=== PATIENT | female | born 1965 | race Caucasian/White ===

== ENCOUNTER 2020-11-11 16:09 | Outpatient (CLI) | payer OTHER, SELFPAY ==
--- NOTE | ~2020-11-11 | MM_ITS ---
EXAMINATION: MM screening [facility] BI w lise HISTORY: Screening TECHNIQUE: Craniocaudal and mediolateral oblique 3-D tomosynthesis images were obtained and synthetic 2-D images were generated. CAD analysis was submitted and interpreted. COMPARISON: Comparison to multiple prior studies sequentially, with oldest reviewed study dated 10/2016. BREAST PARENCHYMAL COMPOSITION: Breast composed of scattered areas of fibroglandular density. FINDINGS: There is no evidence of suspicious mass, calcification, or architectural distortion to sugg est malignancy in either breast. There has been no suspicious interval change. IMPRESSION: 1. No mammographic evidence of malignancy. 2. Recommend routine screening mammography in one year. BI-RADS Category 1: Negative Reviewed, dictated and finalized at location A.
== END 2020-11-11 16:10 | disposition home or self-care (01) ==
LOC: ANHIMG 16:14
PROVIDERS: PCP Physician Assistant; Visit Provider Obstetrics & Gynecology
DX: Z12.31 Encounter for screening mammogram for malignant neoplasm of breast (principal)
CPT/HCPCS: 77063; 77067

== ENCOUNTER 2021-10-06 07:10 | Outpatient (CLI) | payer OTHER, SELFPAY ==
--- NOTE | 2021-10-06 | ECG_ITS ---
Measurements Intervals [place] Rate: 52 P: 33 DC: 146 QRS: -1 QRSD: 79 T: 15 QT: 407 QTc: 380 Interpretive Statements SINUS BRADYCARDIA NO PREVIOUS ECG AVAILABLE FOR COMPARISON Electronically Signed On 10-06-2021 13:58:50 CDT by Nataliia Barrios M.D.
[2021-10-06 08:50] LABS: Basophils Absolute Auto 0.1 K/mm3 (0.0-0.1); Basophils Percent Auto 0.9 % (0.2-1.2); Eosinophils Absolute Auto 0.2 K/mm3 (0-0.3); Eosinophils Percent Auto 2.6 % (0-4.4); Hematocrit 43.1 % (37.0-47.0); Hemoglobin 14.2 g/dL (12.0-15.0); Immature Granulocyte Absolute 0.05 K/mm3 (0.00-0.031); Immature Granulocyte Percent A 0.6 % (0-0.5); Lymphocytes Absolute Auto 1.97 K/mm3 (0.9-3.2); Lymphocytes Percent Auto 25.3 % (18.3-44.2); Mean Corpuscular HGB Conc 32.9 g/dl (32-36); Mean Corpuscular Hemoglobin 30.4 pg (26-34); Mean Corpuscular Volume 92.3 fl (80-100); Monocytes Absolute Auto 0.4 K/mm3 (0.1-0.6); Monocytes Percent Auto 5.3 % (2.6-8.5); Neutrophils Absolute Auto 5.1 K/mm3 (1.3-6.7); Neutrophils Percent Auto 65.3 % (45.5-73.1); Platelet Count Result 251 k/mm3 (150-375); Red Blood Count 4.67 M/mm3 (4.2-5.4); Red Cell Distribution Width 13.8 % (11.5-14.5); White Blood Count 7.8 K/mm3 (4.5-10.0)
[2021-10-06 08:57] LABS: Add Urine Microscopic? YES; Appearance Urine Clear (Clear); Bacteria Urine Trace /hpf; Bilirubin Urine Negative (Negative); Blood Urine 1+ (Negative); Color Urine Yellow (Yellow); Glucose Urine UA Negative (Negative); Ketones Urine Negative (Negative); Leukocyte Esterase Ur Negative LEU/UL (Negative); Mucus Urine Rare /lpf; Nitrate Urine Negative (Negative); Protein Urine Negative (Negative); RBC Urine 0-2 /hpf (0-2); Specific Grav Ur 1.014 (1.001-1.035); Squamous Epithelial Cell Urine Few /hpf (Few); Urobilinogen Urine Negative mg/dL (<2.0); WBC Urine 0-3 /hpf
[2021-10-06 09:02] LABS: Alanine Aminotransferase 25 U/L (4-35); Albumin Level 4.2 g/dL (3.5-5.1); Alkaline Phosphatase 116 U/L (38-126); Anion Gap 6 mmol/L (8-16); Aspartate Amino Transferase 33 U/L (14-36); Bilirubin,Total 0.2 mg/dL (0.2-1.3); Blood Urea Nitrogen 14 mg/dL (7-17); Calcium 9.1 mg/dL (8.4-10.2); Carbon Dioxide 33 mmol/L (22-30); Chloride 102 mmol/L (98-107); Estimated Glomerular Filt Rate > 60; Glucose 103 mg/dL (65-110); Hemoglobin A1C 5.1 % (<5.7); Potassium 4.5 mmol/L (3.4-5.0); Sodium 141 mmol/L (137-145)
[2021-10-06 09:46] LABS: Free T4 Free Thyroxine 1.37 ng/mL (0.78-2.19)
== END 2021-10-06 07:11 | disposition home or self-care (01) ==
PROVIDERS: PCP Physician Assistant; Visit Provider Physician Assistant
DX: Z01.89 Encounter for other specified special examinations (principal); Z13.1 Encounter for screening for diabetes mellitus; Z79.899 Other long term (current) drug therapy; Z13.220 Encounter for screening for lipoid disorders; R00.1 Bradycardia, unspecified
CPT/HCPCS: 36415; 80053; 80061; 81001; 83036; 84439; 84443; 85025; 93005

== ENCOUNTER 2022-07-21 10:00 | Outpatient (CLI) | payer OTHER, SELFPAY ==
--- NOTE | ~2022-07-21 | MM_ITS ---
EXAMINATION: MM screening [facility] BI w lise HISTORY: Screening mammogram TECHNIQUE: Craniocaudal and mediolateral oblique 3-D tomosynthesis images were obtained and synthetic 2-D images were generated. CAD analysis was submitted and interpreted. COMPARISON: 11/11/2020, 07/29/2019, 02/2018 bilateral screening mammogram examinations BREAST PARENCHYMAL COMPOSITION: There are scattered areas of fibroglandular density. FINDINGS: There is no evidence of suspicious mass, calcification, or architectural distortion to sugg est malignancy in either breast. There has been no suspicious interval change. IMPRESSION: 1. No mammographic evidence of malignancy. 2. Recommend routine screening mammography in one year. BI-RADS Category 1: Negative Reviewed, dictated and finalized at location A. E OFFICE
== END 2022-07-21 10:01 | disposition home or self-care (01) ==
LOC: ANHIMG 10:02
PROVIDERS: PCP Physician Assistant; Visit Provider Nurse Practitioner
DX: Z12.31 Encounter for screening mammogram for malignant neoplasm of breast (principal)
CPT/HCPCS: 77063; 77067

== ENCOUNTER → 2022-09-27 11:01 | Outpatient (CLI) | payer OTHER, SELFPAY ==
--- NOTE | ~2022-09-27 | US_ITS ---
EXAMINATION: US transvaginal DATE: 09/27/2022 11:24 INDICATION: Postmenopausal uterine bleeding. TECHNIQUE: Multiple transabdominal and transvaginal sonographic images of the pelvis were obtained. COMPARISON: None. FINDINGS: TRANSABDOMINAL ULTRASOUND: The uterus measures 6.2 x 3.7 x 4.1 cm. There is no free fluid in the pelvis. TRANSVAGINAL ULTRASOUND: The endometrial complex measures 8 mm in thickness. The right ovary measures 1.3 x 0.7 x 1.2 cm. The left ovary measures 1.4 x 0.9 x 1.2 cm. There is normal vascular flow in the ovaries. IMPRESSION: 1. Thickened endometrial complex. The differential diagnosis includes endometrial hyperplasia, polyp, and carcinoma. Consider biopsy. Reviewed, dictated and finalized at location A. UNTS OFFICER IMPRESSION: 1. Thickened endometrial complex. The differential diagnosis includes endometri al hyperplasia, polyp, and carcinoma. Consider biopsy.
== END ==
PROVIDERS: PCP Physician Assistant; Visit Provider Advanced Practice Midwife
DX: N95.0 Postmenopausal bleeding (principal); N93.8 Other specified abnormal uterine and vaginal bleeding
CPT/HCPCS: 76830

== ENCOUNTER 2022-10-30 00:50 | Day surgery (SDC) | payer OTHER, SELFPAY ==
[2022-10-18 13:46] VITALS: BMI 37.0
--- NOTE | 2022-10-19 15:24 | PC.NURSE ---
Report to the Outpatient Waiting Room, entrance under the green pavilion located off [facility], at time _0730 on date __10/30/22 . Planned Procedure Time: 929 . Time changes happen often and if your time is changed the preop area will call you the afternoon before. - You and your visitor will be asked to self-screen and do not enter if you have any COVID symptoms. - Only one visitor is requested with a max of two and NO children visitors are allowed at this time. - The patient visitor may be requested to leave or wait in car when not with patient due to distancing restrictions. - A mask is optional within the hospital at this time. Patients may have clear liquids (water, carbonated beverages, clear teas, apple juice) until 3 hours prior to surgery with a maximum of 20 ounces. - No food from midnight until time of surgery - Infants may have breast milk until 4 hours before surgery, formula 6 hours prior to surgery. - Children will be allowed to drink immediately following surgery. If applicable, please bring a bottle or sippy cup to assist with drinking. Juice, water, soda, and popsicles are readily available. For infants on formula, please bring formula the day of surgery. Pacifiers are allowed. Take the following medications with a SIP of water the morning of surgery: _EFFEXOR DO NOT STOP ANY OF YOUR OTHER PRESCRIPTION MEDICATIONS PRIOR TO SURGERY ?EXCEPT THE FOLLOWING Medications to discontinue per physician ____N/A Date to take last dose___N/A Please no make-up, nail icelandic, hairspray, perfume, deodorant, or body powder the day of surgery. No jewelry (including any body piercings) or valuables the day of surgery, leave them at home. Please take a shower or bath the night before, or the morning of, surgery with an antibacterial soap. Wear comfortable, loose fitting clothing. Children are encouraged to wear pajamas. - Jewelry must be removed prior to entering the operating room. Rings and piercings that are not removed may be cut off. - The hospital will not accept responsibility for valuables. - Please leave all valuables, including medications, at home the day of surgery. If you are going home after surgery, a licensed subway train driver must drive you home. - NO public transportation without another adult if you receive anesthesia. - We recommend that an adult stay with you for 24 hours following discharge. - We also recommend that you do not drive, make important decision, drink alcoholic beverages, or take any drugs that were not prescribed by your health care provider for at least 24 hours after your discharge time. For Pediatric surgeries, we recommend two adults accompany the child home. Follow any additional instructions given to you from your surgeon. If you or anyone in your household have experienced Covid symptoms in the past week, please notify your surgeon or the nurse liaison at the phone number below for possible testing. Telephone instructions given to KOKO and asked if any additional questions and then verbalized understanding. Patient advised to call surgeon office or pre surgery nurse liaison [phone] if any additional questions.
--- NOTE | 2022-10-30 07:39 | WPDHPUPDATE1 ---
History and Physical Update Update Date/Time: 10/30/22 07:39 History and Physical has been reviewed, including an updated exam of the patient. There are NO changes in the patient's condition. Risks, benefits, and alternatives have been discussed and questions answered. Patient agrees to proceed with procedure.
--- NOTE | 2022-10-30 07:40 | PM.HPGS ---
History of Present Illness History of Present Illness Consent: Risks, benefits, and alternatives have been discussed and questions answered. Patient agrees to proceed with procedure. Chief complaint: abn uterine bleeding Narrative: Karen English is a 56 year old female with 3 episodes of bleeding in 2021 ( July, February, March). Patient states she has never gone a full year without bleeding however at her annual exam in 2021 she stated she had had no bleeding. Labs are consistent with probable menopause and ultrasound shows a lining of 8mm. Patient may be perimenopausal versus menopausal. It is recommended to proceed with D&C hysteroscopy to evaluate. Risks of infection, bleeding, perforation, and possible pathology are reviewed. Patient voices understanding and agrees to proceed. Review of Systems Constitutional: Constitutional: Reports night sweats ( And hot flashes) ENT: Reports other ( hay fever) PMFSH Past Medical History Medical History (Updated 10/30/22 @ 07:44 by Karen Almazan MD) Depression with anxiety Insomnia (normal spontaneous vaginal delivery) x3 Surgical History Surgical History (Updated 10/30/22 @ 07:43 by Karen Almazan MD) Hx of microdiscectomy Social History Social History Smoking status: Never smoker Alcohol intake: never Substance use: never Substance use type: does not use Living arrangements: with family Spiritual care concerns: No Meds Home Medications and Allergies Home Medications Medication Instructions Recorded Confirmed Type ergocalciferol (vitamin D2) 1,250 1,250 mcg PO DAILY 10/18/22 10/18/22 History mcg (50,000 unit) capsule trazodone 50 mg tablet 50 mg PO HS 10/18/22 10/18/22 History venlafaxine 75 mg capsule,extended 75 mg PO BID 10/18/22 10/18/22 History release 24 hr Allergies Allergy/AdvReac Type Severity Reaction Status Date / Time No Known Allergies Allergy Unverified 03/29/18 06:39 Exam Const: General: healthy appearing and alert Orientation/consciousness: patient oriented x3 Resp: Effort & Inspection: normal respiratory effort GI: GI Palp: Yes Soft to palpation, No Tenderness to palpation present (GI) and No Palpable mass present : External Female Exam: normal external appearance Speculum Exam - Vagina: normal appearance of the vagina and normal vaginal discharge Speculum Exam - Cervix: normal appearance of the cervix Bimanual exam- vagina & uterus: uterine size normal and consistency normal Bimanual Exam- Adnexa, other: normal adnexae and No adnexal tenderness Neuro: General: patient oriented x3 Assessment and Plan Assessment and plan (1) History of postmenopausal bleeding: Code(s): Z87.42 - Personal history of other diseases of the female genital tract Status: Acute Assessment and Plan: The patient is likely postmenopausal with 3 episodes of bleeding in 2021. Plan to proceed with D&C hysteroscopy.
[2022-10-30 08:00] VITALS: BP 149/79; PULSE 63; RESP 16; TEMP 36.3; O2SAT 99
[2022-10-30] MEDS: LACTATED RINGERS 1,000 ML 30 ML IV CONT (08:00)
[2022-10-30] MEDS: ACETAMINOPHEN 500 MG TABLET 1000 MG PO (08:30)
--- NOTE | 2022-10-30 08:33 | P.PNAN_ITS ---
Anes - Initial Pre Proc Eval Procedure: Operation Date: 10/30/22 09:30 Proposed Procedures p Hysteroscopy, Dilation and Curettage - Karen Almazan MD Date/Time: 10/30/22 08:33 Surgeon: Karen Almazan MD Pre Op Diagnosis: abn uterine bleeding Patient Data Age: 56 Gender: F Height: 1.6 m Weight: 95 kg Allergies Allergy/AdvReac Type Severity Reaction Status Date / Time No Known Allergies Allergy Unverified 10/30/22 08:38 Home Medications Medication Instructions Recorded Confirmed Type ergocalciferol (vitamin D2) 1,250 1,250 mcg PO DAILY 10/18/22 10/30/22 History mcg (50,000 unit) capsule trazodone 50 mg tablet 50 mg PO HS 10/18/22 10/30/22 History venlafaxine 75 mg capsule,extended 75 mg PO BID 10/18/22 10/30/22 History release 24 hr Patient hx anesthesia problems: none Family hx anesthesia problems: none Results Review: All pre-operative results and documents have been reviewed as part of the pre- operative evaluation. PMFSH Past Medical History Medical History (Updated 10/30/22 @ 07:44 by Karen Almazan MD) Depression with anxiety Insomnia (normal spontaneous vaginal delivery) x3 Surgical History Surgical History (Updated 10/30/22 @ 07:43 by Karen Almazan MD) Hx of microdiscectomy Social History Social History Smoking status: Never smoker Alcohol intake: never Substance use: never Substance use type: does not use Living arrangements: with family Spiritual care concerns: No Anes - Eval Final PreProcedure Day of Procedure 10/30/22 08:33 Patient weight: obese Heart: regular rate and rhythm Lungs: clear to auscultation Airway: Mallampati scale class II Neurological: alert and oriented Last oral intake: >/= 8 hours ASA classification: II Emergent: no Anesthetic plan: proceed Anesthesia type and monitoring: general GIVS and standard monitoring Results Review: All pre-operative results and documents have been reviewed as part of the pre- operative evaluation. Informed Consent: The patient's anesthetic plan and its attendant risks and benefits were discussed with the patient/family/POA. Questions were solicited and answers provided to the satisfaction of the patient/family/POA.
[2022-10-30] MEDS: LIDOCAINE HCL 1% LOCAL INJ 20 ML VIAL 10 ML INFILTRATE (09:50)
[2022-10-30 10:01] VITALS: BP 113/63; PULSE 60; RESP 14; O2SAT 97
--- NOTE | 2022-10-30 10:01 | W.PM.PROC2 ---
Procedure Note - Detailed Date of Procedure 10/30/22 Pre-op Diagnosis abnormal uterine bleeding likely postmenopausal Post-op Diagnosis Same Procedure Performed D&C hysteroscopy Surgeon Karen Almazan MD Anesthesia MAC and Local Findings the uterus sounds to 8cm and has a septum; right portion of the uterus appears atrophic and the left portion has a very small entrance that I was unable to pass Description of Procedure the patient was taken to the operating room and placed under anesthesia in the dorsal lithotomy position. She was prepped and draped in the usual sterile fashion. [place] speculum was placed in the vagina and the cervix grasped on the anterior lip with a tenaculum. The cervix is injected in each quadrant with 1% lidocaine. The uterus is sounded to 8cm and the hysteroscope is placed. The above-stated findings are noted. The hysteroscope was removed and the sharp curette used to curette the endometrium until a good uterine cry was noted in all areas. Minimal material was obtained consistent with the atrophic appearance. Estimated Blood Loss 5 Drains No Packing No Pathology Yes ( Endometrial curettings) Complications No immediate complications Condition Stable Disposition PACU
[2022-10-30 10:31] VITALS: BP 150/90; PULSE 53; RESP 16; O2SAT 100
== END 2022-10-30 10:57 | disposition home or self-care (01) ==
PROVIDERS: PCP Physician Assistant; Visit Provider Obstetrics & Gynecology Gynecology
PROC: 0U5B8ZZ Destruction of Endometrium, Via Natural or Artificial Opening Endoscopic (ICD-10-PCS; CPT 58563; principal; 2022-10-30 09:30)
DX: N95.0 Postmenopausal bleeding (principal); Q51.28 Other and unspecified doubling of uterus; F41.8 Other specified anxiety disorders; G47.00 Insomnia, unspecified; E66.9 Obesity, unspecified; Z68.36 Body mass index [BMI] 36.0-36.9, adult
CPT/HCPCS: 58558; 88305; A9270; J2250; J2704; J3010; J7120

== ENCOUNTER 2023-09-26 09:29 | Outpatient (CLI) | payer OTHER, SELFPAY ==
--- NOTE | ~2023-09-26 | MM_ITS ---
EXAMINATION: MM screening [facility] BI w lise HISTORY: Screening mammogram TECHNIQUE: Craniocaudal and mediolateral oblique 3-D tomosynthesis images were obtained and synthetic 2-D images were generated. CAD analysis was submitted and interpreted. COMPARISON: 07/21/2022, 11/11/2020, 07/29/2019 bilateral screening mammogram examinations BREAST PARENCHYMAL COMPOSITION: There are scattered areas of fibroglandular density. FINDINGS: There is no evidence of suspicious mass, calcification, or architectural distortion to sugg est malignancy in either breast. There has been no suspicious interval change. IMPRESSION: 1. No mammographic evidence of malignancy. 2. Recommend routine screening mammography in one year. BI-RADS Category 1: Negative Reviewed, dictated and finalized at location A. LIBRARIAN
== END 2023-09-26 09:30 | disposition home or self-care (01) ==
LOC: ANHIMG 09:34
PROVIDERS: PCP Physician Assistant; Visit Provider Nurse Practitioner
DX: Z12.31 Encounter for screening mammogram for malignant neoplasm of breast (principal)
CPT/HCPCS: 77063; 77067

== ENCOUNTER 2023-11-14 11:03 | Outpatient (CLI) | payer OTHER, SELFPAY ==
--- NOTE | ~2023-11-14 | US_ITS ---
EXAMINATION: US transvaginal DATE: 11/14/2023 11:30 INDICATION: Postmenopausal bleeding. TECHNIQUE: Multiple transvaginal sonographic images of the pelvis were obtained. COMPARISON: Ultrasound 09/27/2022 FINDINGS: The uterus is normal in size. There is no free fluid in the pelvis. The endometrial complex measures 4.8 mm in thickness. The ovaries are not visualized. IMPRESSION: 1. Normal endometrial complex. Reviewed, dictated and finalized at location E.
== END 2023-11-14 11:04 ==
PROVIDERS: PCP Nurse Practitioner; Visit Provider Nurse Practitioner
DX: N95.0 Postmenopausal bleeding (principal)
CPT/HCPCS: 76830

== ENCOUNTER 2024-12-31 09:32 | Outpatient (CLI) | payer OTHER, SELFPAY ==
--- NOTE | ~2024-12-31 | MM_ITS ---
EXAMINATION: MM screening anshu BI w lise HISTORY: Screening TECHNIQUE: Craniocaudal and mediolateral oblique 3-D tomosynthesis images were obtained and synthetic 2-D images were generated. CAD analysis was submitted and interpreted. COMPARISON: Comparison to multiple prior studies sequentially, with oldest reviewed study dated 08/26. BREAST PARENCHYMAL COMPOSITION: Not Dense. The breasts are almost entirely fatty. FINDINGS: There is no evidence of suspicious mass, calcification, or architectural distortion to sugg est malignancy in either breast. There has been no suspicious interval change. IMPRESSION: 1. No mammographic evidence of malignancy. 2. Recommend routine screening mammography in one year. BI-RADS Category 1: Negative Reviewed, dictated and finalized at location B.
--- OUTSIDE RECORDS SUMMARY | 2024-12-31 10:32 | XMS_ITS | Patient Health Record ---
Author Organization Formerly [facility] Address [address] [place] [address] Care Team Providers Care [employer] Name Role Phone Marvin Tran Primary Care Provider [phone] Allergies No Known Allergies Reason For Referral No Information Medications Medication SIG (Take, Route, Fr equency, Duration) Notes Start Date End Date Status Effexor XR 75 MG 1 capsule with food Orally Once a day for 30 days Active traZODone HCl 50 MG 1 tablet at bedtime as needed Orally Once a day for 30 days Ac tive Effexor XR 150 MG 1 capsule with food Orally Once a day for 30 days Active Social History Tobacco Use: Social History Observation Description Date Details (start date - stop date) Never Smoker NA - NA Sex Assigned At : Social History Observation Description Sex Assigned At Female Dont use, Tobacco Use/Smoking Question Answer Notes Are you a nonsmoker Problems Problem Type SNOMED Code ICD Code Onset Dates Problem Status W/U Status Risk Notes Problem Major depression (F32.9) Active confirmed Encounters Encounter Location Date Provider Diagnosis [facility] [address] [place] [address] 01/01/2024 Mustapha Marc Plan Of Treatment No Information Insurance Providers Payer Name Payer Address Payer Phone Subscriber Number Group Number Insured Name Patient Relationship to Insured Coverage Start Date Coverage End Date [facility] [id number] [place] [phone] [id number] Karen English Self - patient is the insured 0 Medical (General) History Surgical History Surgery Date(Month/Year) back surgery Hospitalization History Reason Date(Month/Year) 3 vaginal births
--- OUTSIDE RECORDS SUMMARY | 2024-12-31 10:32 | XMS_ITS | Data Portability ---
Author Organization [facility] [employer], Main Office Address [address] [place] [address] Assessment Encounter Date Assessment Date Assessment LastModified by Organization Details LastModified Time 10/11/2022 10/11/2022 colonoscopy 7 years ago approx, had 10 year time frame [email or web address] Not available 10/11/2022 11:14:23 Plan of Treatment Reminders Order Date Submit Date Provider Last Modified By Organization Details Last Modified Time Details Appointments None recorded. Lab CMP, serum or plasma 023 023 [place] [facility], 2022 Ravi Loving, [address], [place], [address], 3 05:01:24 CBC w/ auto diff 023 023 [place], 2022 Ravi Loving, [address], [place], [address], 3 05:01:24 urinalysi s, dipstick, reflex micro 023 023 [facility] Ravi Loving, [address], [place], [address], 3 05:01:24 vitamin B12 + folate, serum or blood 023 023 [facility]o, 2022 Ravi Loving, [address], [place], [address], 3 05:01:24 lipid panel, serum 023 023 [facility], 2022 Ravi Loving, [address], [place], [address], 3 05:01:24 HbA1c (hemoglob in A1c), blood 023 023 [facility], 2022 Ravi Loving, [address], [place], [address], 3 05:01:24 TSH + free T4, serum 023 023 [facility], 2022 Ravi Loving, [address], [place], [address], 3 05:01:24 insulin, serum 023 023 [facility], 2022 Ravi Loving, [address], [place], [address], 3 05:01:24 Referral None recorded. Procedures None recorded. Surgeries None recorded. Imaging None recorded. Medication Orders None recorded. Patient TargetsNo targets recorded. Patient InstructionsNo instructions recorded. Reason for Referral None Reported. Results Created Date Observation Date Name Description Value Unit Range Abnormal Flag Note LastModifiedBy Organization Detail LastModifiedTime 10/08/19 22 10/06/2021 elect syed pickensgr am, routi ne ECG, 12 leads min No observ ation record ed. [id number] [place] [id number], [place], [address], 09/20/2022 21:02:50 07/26/19 23 07/21/2022 MAMMO , scree marichuy, digit al, bilat eral No observ ation record ed. [email or web address] [place] [id number] [facility] [address], [place], [address], 10/11/2022 11:13:37 Result Notes None recorded. Problems Name Problem SNOMED Code Status Onset Date Resolution Date Notes Provider Name and Address Organization Details Recorded Time Diabetes mellitus screening Active 2021 Not Available [facility] 3 21:00:45 Generalized anxiety disorder 97133698 Active 2021 Not Available [facility] 3 21:00:45 Screening mammography Active 2021 Not Available [facility] 3 21:00:45 Long-term drug therapy Active 2021 Not Available [facility] 3 21:00:45 Adult health examination Active 2021 Not Available [facility] 3 21:00:46 Cholesterol screening Active 2021 Not Available [facility] 3 21:00:46 Screening for malignant neoplasm of colon Active 2021 Not Available [facility] 3 21:00:46 Anxiety 54867197 Active 2021 Not Available [facility] 3 21:00:46 Problem Notes None recorded. Procedures Surgical History Date Name Laterality Status Provider Name and Address Organization Details Recorded Time lumbar microdiscectomy completed Not Available [facility] 09/20/2022 20:59:18 Imaging Results None recorded. Procedure Notes None recorded. Medical Equipment None Reported. Allergies No known drug allergies Medications Name Sig Start Date Stop Date Status Note LastModified by Organization Details LastModified Time venlafaxine ER 75 mg capsule,exte nded release 24 hr TAKE 1 CAPSULE BY MOUTH TWICE DAILY WITH FOOD active Not Available Not Available No t Available trazodone 50 mg tablet TAKE 1 TABLET BY MOUTH EVERY DAY AT BEDTIME NEEDED active Not Available Not Available No t Available oxybutynin chloride ER 10 mg tablet,exten ded release 24 hr TK 1 T PO QD 07/07 completed Not Available Not Available Not Available estradiol-no rethindrone acet 1 mg-0.5 mg tablet TK 1 T PO QD. 07/07 completed Not Available Not Available Not Available ergocalcifer ol (vitamin D2) 1,250 mcg (50,000 unit) capsule TAKE 1 CAPSULE BY MOUTH EVERY WEEK 10/11 completed Not Available Not Available Not Available solifenacin 5 mg tablet 10/11 completed Not Available Not Available Not Available Vitamin D 10,000 daily 2021 active Not Available Not Available Not Avai lable Suprep Bowel Prep Kit 17.5 gram-3.13 gram-1.6 gram oral solution 02/07 completed Not Available Not Available Not Available Vitals Date Recorded Body mass index (BMI) Body height Heart rate Respiratory rate Body temperature Body weight Systolic blood pressure Diastolic blood pressure Provider Name and Address Organization Details Last Updated DateTime 2 37 kg/m2 160.02 cm 72 /min 16 /min 97.3 [degF] 93640.8 1 g 122 mm[Hg] 82 mm[Hg] Not Available [facility] 3 21:00:29 Date Recorded Body temperature Body height Body mass index (BMI) Body weight Respiratory rate Oxygen saturation Oxygen saturation in Arterial blood by Pulse oximetry Heart rate Systolic blood pressure Diastolic blood pressure Provider Name and Address Organization Details Last Updated DateTime 3 97.3 [degF] 160.02 cm 36.8 kg/m2 51686.2 1 g 16 /min 95 % 95 % 92 /min 138 mm[Hg] 80 mm[Hg] ARA Ont[place] [employer] [facility] 3 11:01:21 Social History Question Answer Notes LastModified by Organizat ion Details LastModified Time Tobacco Smoking Status Never Smoker Not Available [facility] 09/20/2022 20:59:15 Do You Have An Advance Directive? No [id number] Information not available 09/20/2022 What Is Your Level Of Caffeine Consumption? Moderate [id number] Information not available 09/20/2022 In The 14 Days Before Symptom Onset, Have You Had Close Contact With A Laboratory-confirm ed COVID-19 While That Case Was Ill? No [id number] Information not available 09/20/2022 In The 14 Days Before Symptom Onset, Have You Had Close Contact With A Person Who Is Under Investigation For COVID-19 While That Person Was Ill? No [id number] Information not available 09/20/2022 What Type Of Diet Are You Following? REGULAR [id number] Information not available 09/20/2022 Have There Been Any Changes To Your Family Or Social Situation? No [id number] Information not available 09/20/2022 Are There Any Guns Present In Your Home? No [id number] Information not available 09/20/2022 Do You Use Insect Repellent Routinely? No Information not available 10/10/2022 Do You Have A Medical Power Of Watch Crystal Cutter? No [email or web address] Information not available 10/10/2022 What Is Your Relationship Status? [id number] Information not available 09/20/2022 Do You Use Your Seat Belt Or Car Seat Routinely? Yes [id number] Information not available 09/20/2022 Do You Have Smoke And Carbon Monoxide Detectors In Your Home? Yes [id number] Information not available 09/20/2022 Do You Use Sunscreen Routinely? No [id number].[id number] Information not available 09/20/2022 Have You Recently Traveled Abroad? No [id number].[id number] Information not available 09/20/2022 Do You Have Any Dietary Restrictions? No [id number].[id number] Information not available 09/20/2022 Sex: Unknown Functional Status Question Answer Note LastModified by Organizat ion Details LastModified Time Do you use any illicit or recreational drugs? No [id number] Information not available 09/20/2022 Do you or have you ever used any other forms of tobacco or nicotine? No [id number] 026 Information not available 09/20/2022 What is your level of alcohol consumption? Occasional [id number].[id number] 026 Information not available 09/20/2022 What is your exercise level? Occasional [id number] 026 Information not available 09/20/2022 Mental Status None recorded. Family History Relationship Description Onset Age of this Age Resolved Age Notes LastModified by Organization Details LastModified Time Father Hypertensive disorder [id number] Not available 09/20/2022 20:59:20 Medical History Condition Response EYE PROBLEMS Y URINARY/BLADDER/KIDNEY PROBLEMS Y ANXIETY DISORDER Y BACK / NECK PROBLEMS Y Gynecological History Statement/Question Response Date of Last Mammogram 11/11/2020 Obstetrics History GPAL:G 0 P 0 0 0 0 Past Encounters Encounter ID Performer Location Encounter Start Date Encounter Closed Date Diagnosis/Indication Diagnosis SNOMED-CT Code Diagnosis ICD10 Code Diagnosis Note [id number] JYOTHI Pruitt [facility] [place] [address] [place] [address] 09/13/2021 00:00:00 09/19/2021 18:56:42 [id number] JYOTHI Pruitt [facility] Internal [facility] [place] [address] [place] [address] 10/11/2022 10:55:27 10/11/2022 11:16:47 Adult health examination 369140581 Z00.01 well exam completed Cholesterol screening 27 9628789 Z13.220 fasting lipids due Diabetes annita alexisitus screening 552929155 Z13.1 screening for diabetes due Long-term drug therapy 592780705 Z79.899 all annual labs are due Generalize d anxiety disorder 31660695 F41.1 stable on venlafaxin e ER 75mg daily Body mass index 30+ - obesity 546125475 Z68.36 screening TFTs and insulin due. Health Concerns Section Related Observation LastModified by Organization Detai ls LastModified Time None Recorded Concern Status LastModified by Organization Details LastModified Time None Recorded Advance Directives Directive N: Payers Encounter Date Sequence Insurance Name Policy Number Policy Boothe Covered Member ID Boothe Member ID Guarantor Name 10/11/2022 1 [facility] [id number] Karen English [id number] Karen English Notes Date Note Type Note Provider Name and Address Organization Details Recorded Time 09/13/2021 text/html Anxiety/Depressi onR eported bypatient.Quality:s ymptoms improved; doesnt matter time of day. Severity:denies suicidal ideations; able to maintain relationships; does not interfere with activities of daily living Context:no major life stressors Modifying Factors:counselling ; medications as directed Associated Symptoms:denies homicidal ideations; no significant weight gain; no significant weight loss; no visual/auditory hallucinations; no delusions; no shortness of breath; mood good; no anxiety; no crying spells; no panic; no isolation; sleeping well; appetite good; energy good; no apathy; maintaining functionality Not Available [facility] [employer] [facility] 09/19/2021 18:56:42 10/11/2022 text/html Anxiety/Depressi onR eported bypatient.Quality:d oesnt matter time of day. Severity:denies suicidal ideations; able to maintain relationships; does not interfere with activities of daily living Duration:symptoms lasting over 2 weeks Onset/Timing:still present Context:no major life stressors Modifying Factors:rx Associated Symptoms:denies homicidal ideations; no significant weight gain; no significant weight loss; no visual/auditory hallucinations; no delusions; no shortness of breath wellness JYOTHI Pruitt [address] [facility], [facility] [address], [place], [address], [facility] [employer] [facility] 10/19/2022 19:18:22 OBGyn Episode No OBEpisode recorded.
--- OUTSIDE RECORDS SUMMARY | 2024-12-31 10:32 | XMS_ITS ---
Author Organization [facility] Address [address] [place] [address] Care Team Providers Care Chiller Operator Name Role Phone Marvin Tran Primary Care Provider REASON FOR VISIT last seen 01/16/23 Social History Sex Assigned At : Social History Observation Description Sex Assigned At Female Encounters Encounter Location Date Provider Diagnosis [address] [place] [address] 01/01/2024 Marvin Tran Plan Of Treatment No Information Progress Notes * TAMEKAKarenDOB:[birth year] (59 yo F)Acc No.[id number]:01/01/2024 UNLOCKED PROGRESS NOTE Patient: Karen MARIA Provider: Spenser Tran :1965 A ge:58 Y S ex:Female Date:01/01/2024 Address:[address], [facility] Subjective: * Chief Complaints: * 1 . Last seen 01/16/23. * Medical History: Objective: * Vitals: Assessment: Plan: * Treatment: * * Electronic signature of Marvin Tran MD, [id number] on 12/31/2024 at 10:31 AM CDT Sign off status: Pending * Provider: Spenser Tran Date: 01/01/2024 Generated for Printi ng/Faxing/eTransmitting on: 0 12/31/2024 10:31 AM CDT
== END 2024-12-31 09:33 | disposition home or self-care (01) ==
LOC: ANHIMG 09:36
PROVIDERS: PCP Physician Assistant; Visit Provider Nurse Practitioner
DX: Z12.31 Encounter for screening mammogram for malignant neoplasm of breast (principal)
CPT/HCPCS: 77063; 77067

== ENCOUNTER 2025-03-25 11:35 | Outpatient (CLI) | payer OTHER, SELFPAY ==
--- NOTE | ~2025-03-25 | XR_ITS ---
EXAM/ PROCEDURE: XR hip LT min 2V - 03/25/2025 11:40 CDT HISTORY: 59 years old Female with PT C/O LEFT LATERAL HIP PAIN COMPARISON: None available TECHNIQUE: Three view(s) FINDINGS/ IMPRESSION: There are no fractures or dislocations.Joint space narrowing, subchondral sclerosis, subchondral cyst formation and osteophyte formation, compatible with mild osteoarthritis. Reviewed, dictated and finalized at location N.
== END 2025-03-25 11:36 | disposition home or self-care (01) ==
LOC: MICIMG 11:36
PROVIDERS: PCP Physician Assistant; Visit Provider Physician Assistant
DX: M25.552 Pain in left hip (principal)
CPT/HCPCS: 73502